=== PATIENT | male | born 1955 | race Caucasian/White ===

== ENCOUNTER 2018-11-08 09:17 | Observation (INO) | payer OTHER ==
[~2018-11-08 09:17] MED LIST: Buffered Lidocaine 1% SYRIN* 1 ML/SYRINGE INTRADERM ONE; Dexamethasone IV* 4 MG/ML 1 ML (4 MG) IV SLOW PU ONE; Famotidine IV* 10 MG/ML 2 ML (20 mg) IV ONE; Lactated Ringers 1000 ML Bag* 1,000 ML IV SCH
[2018-11-08] MEDS ORDERED: ceFAZolin 2 GM in NS PREMIX(*) 2 GM/100 ML BAG IVPB ONE ×2 (09:53→16:01)
[2018-11-08] MEDS ORDERED: Dexamethasone IV* 4 MG/ML 1 ML (4 MG) ONE (09:53)
[2018-11-08] MEDS ORDERED: Famotidine IV* 10 MG/ML 2 ML (20 mg) ONE (09:53)
[2018-11-08] MEDS ORDERED: Buffered Lidocaine 1% SYRIN* 1 ML/SYRINGE INTRADERM ONE (09:53)
[2018-11-08] MEDS ORDERED: Lidocaine 1% w EPI 1:200,000* 30 ML VIAL ONE (10:57)
[2018-11-08] MEDS ORDERED: Thrombin 5,000 UNITS* 1 APPLIC KIT - topical use - TOPICAL ONE (10:57)
[2018-11-08] MEDS ORDERED: Bacitracin INJECTION* 50,000 UNITS ONE (10:58)
[2018-11-08] MEDS ORDERED: Propofol* 10 MG/ML 20 ML BTL ONE (11:23)
[2018-11-08] MEDS ORDERED: Midazolam* 1 MG/ML 5 ML VIAL (5 MG) ONE (11:23)
[2018-11-08] MEDS ORDERED: Succinylcholine* 20 MG/ML 10 ML VIAL ONE (11:23)
[2018-11-08] MEDS ORDERED: fentaNYL* 50 MCG/ML 5 ML VIAL (250 MCG VIAL) ONE (11:23)
[2018-11-08] MEDS ORDERED: EPHEDrine (Pressors)* 50 MG/ML VIAL ONE ×2 (12:02→13:26)
[2018-11-08] MEDS ORDERED: Remifentanil* 2 MG VIAL ONE ×2 (12:04→15:18)
[2018-11-08] MEDS ORDERED: Phenylephrine 40 MCG/ML SYRINGE ONE (12:06)
[2018-11-08] MEDS ORDERED: Phenylephrine 10 MG/ML VIAL* 1 ML VIAL ONE (12:14)
[2018-11-08] MEDS ORDERED: Glycopyrrolate IV* 0.2 MG/ML 1 ML VIAL ONE ×2 (12:33→16:06)
[2018-11-08] MEDS ORDERED: DiMENhydriNATE IV* 50 MG/ML VIAL IV PUSH PRN (13:42)
[2018-11-08] MEDS ORDERED: Naloxone* 0.4 MG/ML 1 ML VIAL IV PRN (13:42)
[2018-11-08] MEDS ORDERED: oxyCODONE/Acetamin 5/325 MG* TAB PO PRN (13:42)
[2018-11-08] MEDS ORDERED: fentaNYL* 50 MCG/ML 2 ML VIAL (100 MCG VIAL) IV PRN (13:42)
[2018-11-08] MEDS ORDERED: HYDROcodone/ACETAMIN 5-325 MG* 1 TAB PO PRN (13:42)
[2018-11-08] MEDS ORDERED: Rocuronium* 10 MG/ML VIAL ONE (13:49)
[2018-11-08] MEDS ORDERED: Neostigmine Methylsulfate* 1 MG/ML 10 ML VIAL (1 mg/ml) ONE (16:06)
[2018-11-08] MEDS ORDERED: Ondansetron INJ* 2 MG/ML VIAL ONE (16:08)
[2018-11-08] MEDS ORDERED: Acetaminophen IV 1GM/100ML * 100 ML ONE (17:17)
[2018-11-08] MEDS ORDERED: Acetaminophen IV 1GM/100ML * 1,000 MG/100 ML VIAL IVPB ONE (17:23)
[2018-11-08] MEDS ORDERED: Ondansetron INJ* 2 MG/ML VIAL IV PRN (17:34)
[2018-11-08] MEDS ORDERED: Magnesium Hydroxide LIQ* 30 ML UDC PO PRN (17:34)
[2018-11-08] MEDS ORDERED: Lactated Ringers 1000 ML Bag* 1,000 ML IV SCH (18:00)
[2018-11-08] MEDS: HYDROcodone/ACETAMIN 5-325 MG* 1 TAB PO PRN ×2 (18:45→22:49)
--- NOTE | 2018-11-08 18:48 | OP ---
DATE OF OPERATION: 11/08/18 - ROOM #353 DATE OF : 59 SURGEON: Ron Stephenson MD INTERN: GRISELDA Lau. The case was done with the assistance of surgical PA because of the complexity of the case. ANESTHESIA: General. PRE-OP DIAGNOSIS: C5-6, C6-7 degenerative disk disease. POST-OP DIAGNOSIS: C5-6, C6-7 degenerative disk disease. OPERATIVE PROCEDURE: The patient underwent anterior cervical diskectomy and fusion at C5-6, C6-7 with PEEK interbody cages, DBX, autologous bone graft, plate and screws with intraoperative microscope and intraoperative monitoring. ESTIMATED BLOOD LOSS: 10 cc. COMPLICATIONS: None. SUMMARY: The patient is a very pleasant 62-year-old gentleman with complaints of neck pain radiating to both upper extremities with weakness and numbness of both upper extremities with MRI findings consistent with degenerative disk disease at C5- 6 and C6-7. After failing all conservative treatment modalities , the patient was offered the option of surgical intervention in the form of anterior cervical diskectomy and fusion at C5-6 and C6-7. After discussing the expectations, limitations, and possible complications of the procedure with the patient and his friend, his landlord, with complications including, but not limited to bleeding, infection, risk of injury to adjacent structures, coma, paralysis, , need for additional procedures, anesthesia risks, stroke, blindness, cancer, instability, hardware failure, adjacent level disease, pseudoarthrosis, spinal fluid leak, recurrent laryngeal nerve injury, Mark syndrome, injury to thoracic duct, need for tracheostomy or gastrostomy; the patient was agreeable to proceed with surgery and informed consent was obtained. The patient understood that his condition may not improve and in fact may get worse after surgery and that he may need to have additional procedures in the future. He also understood that operative plan may be modified according to intraoperative findings and conditions and that the procedure may be abandoned or done in more than 1 stages. The patient has history of previous CA of larynx with radiation several years ago, followed by Dr. Leung and had significant scar formation even on the skin. The patient understood that it may be difficult to perform the dissection and he has increased risk of recurrent laryngeal nerve injury and that the procedure may be abandoned. He also understood that he may need prolonged ICU stay, prolonged hospitalization, prolonged rehabilitation, need for tracheostomy or gastrostomy. DESCRIPTION OF PROCEDURE: The patient was brought to the operating room and was placed under general anesthesia by anesthesia team. He was carefully positioned supine on the flat top Aleksey table and all bony prominences were meticulously padded. His skin was prepped and draped in the standard fashion. After appropriate surgical pause and patient identification, a small transverse incision on the right anterior cervical area over the C6 vertebral body was made with assistance of intraoperative fluoroscopic imaging. Prior to incision , the skin was infiltrated with local anesthetic. The incision was carried down to the platysma with Bovie cautery. The platysma was gently elevated and dissected free with tenotomy scissors. The platysma was undermined and self- retaining retractors were introduced into the field. The plane between the medial border of the sternocleidomastoid and the medial structures was then gently developed with sharp and dull dissection. Of note, significant amount of scar tissue was encountered as expected from the patient's history of previous radiation. The prevertebral fascia was identified and and was gently divided and the anterior portion of the vertebral column was identified. Intraoperative fluoroscopic imaging confirmed appropriate surgical level and a [place] pin at C5, C6 and C7 vertebral body was placed after dissecting free the prevertebral fascia and elevating slightly the longus colli muscles. The self- retaining retractors were introduced into the field and the microscope was brought into the field. A diskectomy was performed at C6-7 level first after incising the annulus fibrosus with #15 surgical blade. The diskectomy and preparation of the endplates were carried out with the use of pituitary rongeurs , Kerrison punches, curettes, and high-speed drill. Under microscopic magnification, the posterior longitudinal ligament was divided and extensive foraminotomies were performed bilaterally. After copious irrigation, confirmation of meticulous hemostasis and after sizing of the intervertebral space, a 9-mm height PEEK interbody cage from [employer] was inserted after being filled with locally harvested bone graft that was saved during the disk preparation, mixed with DBX was inserted. Then, the [place] pin from the C7 vertebral body was removed and meticulous hemostasis was obtained with Surgiflo and bone wax. Then, the self- retaining retractors were repositioned at the C5- 6 level. Every time that the self-retaining retractors were introduced into the field and secured in place, the Apfelbaum maneuver was performed. Diskectomy, foraminotomies and endplate preparation was performed at the C5-6 level. A 9-mm height interbody cage was also inserted after being filled with locally harvested bone graft and DBX. The [place] pins were then removed and a [employer] Zevo plate was placed and secured with titanium screws. Intraoperative fluoroscopic imaging confirmed excellent placement of all hardware. The self-retaining retractors were removed from the field and after confirmation of meticulous hemostasis, copious irrigation and after meticulous inspection, the wound was closed by layers over a Terry drain which was tunneled through a separate stab wound incision. The platysma was approximated with interrupted 2-0 Vicryl suture while the subcutaneous tissue was approximated with inverted interrupted 2-0 Vicryl sutures. The skin was then covered with Dermabond. At the end of the procedure, all counts were reported to be correct. The patient remained hemodynamically stable throughout the case. He was then extubated and was transferred to Recovery in excellent condition. The case was done with the assistance of surgical PA because of the complexity of the case. [id number]/[facility] #: [id number] YULIANA
[2018-11-08] MEDS ORDERED: Cyclobenzaprine TAB* 10 MG ONE (22:20)
[2018-11-08] MEDS ORDERED: Cyclobenzaprine TAB* 10 MG PO PRN (22:45)
[2018-11-08] MEDS: Pregabalin CAP(*) 25 MG PO SCH (22:48)
[2018-11-08] MEDS: Pregabalin CAP(*) 100 MG PO SCH (22:50)
[2018-11-08] MEDS ORDERED: Atorvastatin* 80 MG TAB PO SCH (23:00)
[2018-11-08] MEDS ORDERED: Levothyroxine TAB* 75 MCG TAB PO SCH (23:00)
[2018-11-08] MEDS: Amitriptyline TAB* 25 MG PO SCH (23:13)
[2018-11-08] MEDS: Pantoprazole TAB * 40 MG TAB PO SCH (23:13)
[2018-11-09] MEDS: HYDROcodone/ACETAMIN 5-325 MG* 1 TAB PO PRN ×2 (05:19→12:59)
[2018-11-09] MEDS: Pantoprazole TAB * 40 MG TAB PO SCH (08:11)
[2018-11-09] MEDS: Pregabalin CAP(*) 25 MG PO SCH (08:12)
[2018-11-09] MEDS: Pregabalin CAP(*) 100 MG PO SCH (08:12)
[2018-11-09] MEDS: Amitriptyline TAB* 25 MG PO SCH (08:13)
[2018-11-09] MEDS ORDERED: Lisinopril TAB* 10 MG PO SCH (09:00)
[2018-11-09] MEDS ORDERED: Magnesium Oxide TAB* 400 MG PO SCH (09:00)
--- NOTE | 2018-11-09 11:06 | PN ---
Progress Note - Progress Note Date of Service: 11/09/18 SOAP: Subjective: 69 y/o male s/p ACDF at C5/C6,C6/C7 POD #1, no new acute issues overnight. Patient is doing well, he has been able to drink and eat with difficulty. Has post op imaging this morning. RUPINDER drain put out 57 over night. He feels is radicular symptoms have improved, patient has no new complaints at this time. Objective: Vital Signs - 12 hr Temp Pulse Resp BP Pulse Ox 11/09/18 08:12 20 11/09/18 07:22 97.5 F 72 18 127/73 93 11/09/18 07:15 20 11/09/18 05:19 16 11/09/18 04:23 97.7 F 76 16 138/86 94 11/09/18 01:19 18 11/09/18 00:00 93 PE: Patient sitting up at the edge of bed, NAD Nuero: GCS 15, A&O x3. CN II - XII grossly intact, UPE motor strength 5/5 bilat , LE motor strength 5/5 bilat sensation intact Wound C/D/I Assessment: 69 y/o male post ACDF of C5/C6, C6/C7 patient doing well, no acute issues overnight doing well ready for discharge. Plan: D/C drain Pain management as as needed Follow up post op imaging D/C planning
[2018-11-09 12:13] VITALS: BP 123/79
--- NOTE | 2018-11-09 14:40 | CONS ---
[facility] MEDICINE CONSULTATION REPORT: DATE OF CONSULT: 11/09/18 ATTENDING SURGEON: Dr. Stephenson. CONSULTING PHYSICIAN: Dr. Melly De Luna (dictated by Kathy Guerrier NP). REASON FOR CONSULT: Co-management of chronic medical conditions. HISTORY OF PRESENT ILLNESS: Mr. Stewart is a 62-year-old male with a past medical history significant for hypertension, hyperlipidemia, malignant neoplasm of epiglottis, history of sleep apnea, chronic pain, hypothyroid, and spinal stenosis, who presented to [facility] [place] for an elective anterior cervical fusion with Dr. Stephenson. Please see dictated H and P from Dr. Stephenson for complete details. In brief, the patient had ongoing pain with radiation of pain to bilateral upper extremities and failed conservative measures, so therefore elected for an elective anterior cervical diskectomy and spinal fusion. In the immediate postoperative period, the patient is doing well. He has no complaints. He is sitting on the edge of the bed in his hospital room. He denies any chest pain or shortness breath. Denies any nausea, vomiting, diarrhea, abdominal pain. Denies any fever or chills. Denies any upper extremity weakness. Due to his chronic medical conditions, we were asked to see and evaluate the patient to help co-manage his chronic medical conditions. PAST MEDICAL HISTORY: Significant for: 1. Hypertension. 2. Hyperlipidemia. 3. History of malignant neoplasm of epiglottis, status post radiation. 4. Sleep apnea. 5. Aortic abdominal aneurysm. 6. Chronic pain. 7. Morbid obesity. 8. Spinal stenosis. 9. Hypothyroid. 10. Hernia. PAST SURGICAL HISTORY: 1. Right hip fracture repair. 2. Bilateral knee surgery. 3. Carpal tunnel bilaterally. 4. Appendectomy. 5. Splenectomy in 1996. 6. Right hip replacement in 2007. 7. ORIF of right tib-fib fracture. 8. Right wrist repair. HOME MEDICATIONS: Include: 1. Aspirin 325 mg p.o. daily, stopped 7 days ago. 2. Atorvastatin 80 mg p.o. daily. 3. Lisinopril 40 mg half a tab p.o. daily. 4. Lyrica 225 mg p.o. b.i.d. 5. Cyclobenzaprine 10 mg p.o. t.i.d. p.r.n. 6. Prilosec 20 mg p.o. b.i.d. 7. Amitriptyline 25 mg p.o. b.i.d. 8. Synthroid 75 mcg p.o. daily. 9. Vitamin B2 100 mg p.o. daily. 10. Magnesium oxide 100 mg p.o. daily. 11. Qdvovlwgco-xtmtorbxtaxds-udcwdqrv 50/325/40 one tablet as needed for headache. 12. Ventolin HFA inhaler 2 puffs q.6 hours as needed for shortness of breath; the patient reports he rarely uses this. ALLERGIES: No known drug allergies. SOCIAL HISTORY: The patient denies any smoking or illicit drug use. He does report rare alcohol use. Surrogate decision-maker in the event he is unable to make his own decisions is his brother. He is a full code. FAMILY HISTORY: Mother with a history of stroke and at the age of 73. Father with an MS and at the age of 33. No reported history of diabetes. The patient does report family history of colon cancer and mother's aunt with breast cancer. REVIEW OF SYSTEMS: An 11-point review of systems was completed; all pertinent positives were mentioned in the HPI, otherwise were negative. PHYSICAL EXAM: General: Mr. Stewart is a 62-year-old. He is alert and oriented, sitting in his hospital bed, but in no acute distress. He does have an M J collar in place. Vital Signs: Blood pressure 123/79, heart rate 85, respirations 18, O2 saturation 94% on room air. Temperature was 97.8. HEENT: Head is atraumatic, normocephalic. Eyes: EOMs are intact. Sclerae is anicteric and not pale. Oral mucosa appeared to be moist. Neck: He has an M J collar intact. Dressing to anterior neck is dry and intact. Lungs are clear to auscultation bilaterally. No wheezes, rales, or rhonchi. Cardiac: S1, S2. Regular rate and rhythm. No murmurs, rubs, or gallops. Abdomen is soft and nontender. Bowel sounds are present x4. Extremities: He is able to move all 4 extremities with 4/5 strength. Radial pulses are +2 bilaterally. Sensation is intact to bilateral upper extremities. Pedal pulses are +2 bilaterally. Skin: He does have a dressing that is dry and intact at his anterior neck. Neurologic: He is awake, alert and oriented x3. Speech is clear. Thought process is intact. There is no gross focal deficit. DIAGNOSTIC STUDIES/LAB DATA: Labs from 10/31/18: WBCs are 9.7, RBCs 4.08, hemoglobin 13.4, hematocrit 40, platelet count was 461. INR was 0.91, APTT was 33.9. Sodium 132, potassium 4.8, chloride 97, carbon dioxide was 19, anion gap of 16, BUN was 127, creatinine 1.36. glucose was 104. Urine was within normal limits with exception of specific gravity that was 1.009. He had a cervical spine x-ray on 11/09/18, anterior fusion of C5 to C7 with anterior plate and screws. IMPRESSION AND PLAN: Mr. Stewart is a 62-year-old male who presented to [facility] for an elective anterior cervical fusion with Dr. Stephenson. We were asked to see the patient in consultation to co-manage his chronic medical conditions. Our recommendations are as follows: 1. Status post anterior cervical fusion C5 to C7. 2. Management per Neurosurgery, PT/OT per Neurosurgery. Pain medications per Neurosurgery. 3. Hypertension. He can continue lisinopril 20 mg p.o. daily as previously prescribed. 4. Hypothyroid. He should continue on Synthroid 75 mcg p.o. daily. 5. Hyperlipidemia. The patient should continue on atorvastatin 80 mg p.o. daily. 6. Gastroesophageal reflux disease. The patient should continue on Prilosec 20 mg p.o. b.i.d. 7. Chronic pain. The patient should continue his Lyrica and cyclobenzaprine as needed for pain. 8. FEN. He can have a regular diet. 9. Code status. He is a full code. 10. DVT prophylaxis as per Neurosurgery. TIME SPENT: Time spent on this consultation was approximately 45 minutes. Greater than half of that time was spent at the bedside reviewing events leading thus far to his hospitalization, performing physical exam and reviewing my plan of care. I have discussed this with my attending, Dr. Melly De Luna; she is in agreement with my plan. KATHY GUERRIER, [employer] [id number]/[facility] #: [id number] [facility]
--- NOTE | 2018-11-10 03:30 | DS ---
DISCHARGE SUMMARY: DATE OF ADMISSION: 11/08/18 DATE OF DISCHARGE: 11/09/18 PROVIDER: Kathy Guerrier NP ATTENDING SURGEON: Dr. Stephenson. CONSULTING PHYSICIAN: Dr. Melly De Luna * (dictated by Kathy Guerrier NP). PRIMARY DIAGNOSIS: Anterior cervical spine diskectomy and fusion. SECONDARY DIAGNOSES: 1. Hypertension. 2. Hyperlipidemia. 3. History of malignant neoplasm of epiglottis, status post radiation. 4. Sleep apnea. 5. Aortic abdominal aneurysm. 6. Chronic pain. 7. Morbid obesity. 8. Spinal stenosis. 9. Hypothyroidism. 10. Hernia. STUDIES COMPLETED WHILE IN THE HOSPITAL: He had a postoperative cervical spine x- ray which showed anterior fusion of C5 to C7 with anterior plate and screws. DISCHARGE MEDICATIONS: New medications: 1. Hydrocodone/acetaminophen 5/325 two tablets every 4 hours as needed for pain. 2. Cyclobenzaprine 10 mg p.o. t.i.d. as needed for spasm. Continued home medications: 1. Vitamin B2 100 mg p.o. daily. 2. Lyrica 225 mg p.o. b.i.d. 3. Omeprazole 20 mg p.o. b.i.d. 4. Magnesium oxide 400 mg p.o. q.a.m. 5. Lisinopril 20 mg p.o. q.a.m. 6. Levothyroxine 75 mcg p.o. at bedtime. 7. Iaerbljgkf-ykpwqplslumiq-bsoyyxjq 1 tab q.4 hours p.r.n. 8. Atorvastatin 80 mg p.o. at bedtime. 9. Aspirin 325 mg p.o. daily. 10. Amitriptyline 25 mg p.o. b.i.d. HISTORY OF PRESENT ILLNESS AND HOSPITAL COURSE: Mr. Stewart is a 62-year-old male who presented to [facility] for an elective anterior cervical fusion with Dr. Stephenson. In brief, the patient had ongoing neck pain radiating to both upper extremities with weakness and numbness to both upper extremities, who had an MRI consistent with degenerative disk disease at C5-6 and C6-7. After failing conservative measures, the patient opted for an elective anterior cervical diskectomy and fusion with Dr. Stephenson. In the immediate postoperative period, the patient is doing well. His pain has been controlled with pain medications. He has no neurological deficits and is stable for discharge home as per Dr. Stephenson' recommendation. At this time, the patient will be discharged home. Vital Signs: Blood pressure 123/79, heart rate 85, respirations 18, O2 saturation 94%, temperature was 97.8. DISCHARGE PLAN: Mr. Stewart will be discharged home. Activity as tolerated with restrictions, no bending, no lifting, no driving. Status post anterior cervical spine fusion. Neurosurgery has instructed the patient that he must leave collar in place at all times. He is not to drive. No lifting. No bending. He can shower, would light rinse over the surgical wound, continue to wear the C-collar at all times. Follow up with Dr. Stephenson in 1 week and follow up with his primary care provider in 1 week. If the patient should notice any drainage, redness, or increased pain to the surgical incision site, he should contact Dr. Stephenson for further recommendations. If the patient develops any chest pain, shortness of breath, bleeding from the incision site, difficulty swallowing or any other concerning symptoms, the patient should return to the emergency room. At this time, Mr. Stewart is stable for discharge home. DISPOSITION: Home. CONDITION ON DISCHARGE: Stable. I have discussed with my attending, Dr. Melly De Luna, who was in agreement with my plan. KATHY GUERRIER NP [id number]/[facility] #: [id number] YULIANA
== END 2018-11-09 16:15 | disposition home or self-care (01) ==
LOC: OR 09:17 → SSU 18:28
PROVIDERS: ADMIT Neurological Surgery; ATTEND Neurological Surgery
DX: M50.323 Other cervical disc degeneration at C6-C7 level (principal); I10 Essential (primary) hypertension; E78.5 Hyperlipidemia, unspecified; Z85.21 Personal history of malignant neoplasm of larynx; Z92.21 Personal history of antineoplastic chemotherapy; G47.30 Sleep apnea, unspecified; I71.4 Abdominal aortic aneurysm, without rupture; G89.29 Other chronic pain; E66.01 Morbid (severe) obesity due to excess calories; M48.00 Spinal stenosis, site unspecified; E03.9 Hypothyroidism, unspecified; K46.9 Unspecified abdominal hernia without obstruction or gangrene; Z79.82 Long term (current) use of aspirin; Z79.899 Other long term (current) drug therapy; K21.9 Gastro-esophageal reflux disease without esophagitis
CPT/HCPCS: 72040; 76000; A9270-GY; G0378; G8987-GO-CI; G8988-GO-CI; G8989-GO-CI; J0330; J0690; J1100; J2001; J2250; J2405; J2704; J2710; J3010

== ENCOUNTER 2019-11-21 07:30 | Inpatient (IN) ==
[2019-11-28] MEDS ORDERED: Lactated Ringers 1000 ml BAG 1,000 ML IV SCH (06:00)
[2019-11-28] MEDS ORDERED: Buffered Lidocaine 1% SYRIN 1 ml INTRADERM ONE (06:00)
[2019-11-28] MEDS ORDERED: ceFAZolin 2 GM PREMIX 2 GM/50 ML BAG ONE (06:55)
[2019-11-28] MEDS ORDERED: Bacitracin OINTMENT TUBE ONE (07:16)
[2019-11-28] MEDS ORDERED: Ketamine HCL 50 mg/ml 10 ml VIAL (500 MG) ONE (07:17)
[2019-11-28] MEDS ORDERED: Midazolam 5 mg/5 ml VIAL 1 mg/ml 5 ml VIAL (5 mg) ONE (07:17)
[2019-11-28] MEDS ORDERED: Bacitracin INJECTION 50,000 UNITS ONE (07:20)
[2019-11-28] MEDS ORDERED: Bupivacaine 0.25% w/EPI 10 ML SDV ONE ×2 (07:20→09:43)
[2019-11-28] MEDS ORDERED: Propofol 10 mg/ml 100 ML BTL 0 ML ONE (07:21)
[2019-11-28] MEDS ORDERED: fentaNYL 250 mcg/5 ml 50 MCG/ML 5 ml VIAL (250 MCG) ONE (07:29)
[2019-11-28] MEDS ORDERED: Artificial Tear OPHTH.OINT 3.5 GM ONE (07:33)
[2019-11-28] MEDS ORDERED: Phenylephrine IV 10 MG/ML 1 ml VIAL ONE (09:15)
[2019-11-28] MEDS ORDERED: Calcium CHLORIDE 10% SYRINGE 1 GM/10 ML ONE ×2 (09:31→09:40)
[2019-11-28] MEDS ORDERED: Naloxone 0.4 mg VIAL 0.4 mg/ml 1 ml VIAL IV PRN (09:40)
[2019-11-28] MEDS ORDERED: fentaNYL 100 mcg/2 ml 50 MCG/ML VIAL IV PRN (09:40)
[2019-11-28] MEDS ORDERED: Ondansetron 4 mg VIAL 2 MG/ML 2 ml VIAL IV PRN ×2 (09:40→12:24)
[2019-11-28] MEDS ORDERED: Remifentanil 2 MG VIAL ONE (10:14)
[2019-11-28] MEDS ORDERED: Phenylephrine 40 mcg/mL 10mL (400mcg) SYRINGE ONE (10:43)
[2019-11-28] MEDS ORDERED: Magnesium Hydroxide LIQ 30 ML UDC PO PRN (12:24)
[2019-11-28] MEDS ORDERED: HYDROcodone/ACETAMIN 5/325 mg TAB ONE (12:32)
[2019-11-28] MEDS ORDERED: HYDROmorphone 1 MG/1 ML SYRINGE ONE (12:32)
[2019-11-28] MEDS: HYDROcodone/ACETAMIN 5/325 mg TAB PO PRN ×2 (12:37→19:01)
[2019-11-28] MEDS: HYDROmorphone 1 MG/1 ML SYRINGE IV PRN ×5 (12:38→13:17)
[2019-11-28] MEDS ORDERED: Albuterol HFA INHALER 8 gm MDI INH PRN (13:49)
[2019-11-28] MEDS ORDERED: Ondansetron 4 mg VIAL 2 MG/ML 2 ml VIAL ONE (13:53)
[2019-11-28] MEDS ORDERED: Sugammadex 500 MG/5 ML 5 ml VIAL IV PUSH ONE (13:56)
[2019-11-29] MEDS: HYDROcodone/ACETAMIN 5/325 mg TAB PO PRN ×3 (00:12→15:04)
[2019-11-29] MEDS: SPIRIVA Respimat (tiotropium) 2.5 mcg/inh Inhaler INH SCH (08:55)
[2019-11-29] MEDS: Riboflavin (B2) 100 mg TAB(NF) PO SCH (09:48)
[2019-11-29] MEDS ORDERED: Iohexol 350 (CONTRAST) 500 ML MDV IV ONE (13:27)
[2019-11-30 00:20] LABS: Urine Appearance Clear; Urine Bilirubin Negative (Negative); Urine Blood Negative (Negative); Urine Color Yellow; Urine Glucose 1+(50 mg/dL) (Negative); Urine Ketones Negative (Negative); Urine Nitrite Negative (Negative); Urine Protein Negative (Negative); Urine Specific Gravity 1.018 (1.010-1.030); Urine Urobilinogen Negative (Negative)
[2019-11-30 02:25] LABS: BUN/Creatinine Ratio 17.2 (8-20); Calcium 8.7 mg/dL (8.6-10.3); EGFR African American 72.8 (>60); EGFR Non-African American 60.2 (>60); Potassium 4.3 mmol/L (3.5-5.0)
[2019-11-30] MEDS: NS 0.9% 1000 ml BAG 1,000 ML IV SCH ×2 (03:32→06:32)
[2019-11-30] MEDS: SPIRIVA Respimat (tiotropium) 2.5 mcg/inh Inhaler INH SCH (08:04)
[2019-11-30] MEDS: HYDROcodone/ACETAMIN 5/325 mg TAB PO PRN ×2 (08:11→21:23)
[2019-11-30] MEDS: Riboflavin (B2) 100 mg TAB(NF) PO SCH (08:15)
[2019-11-30 09:52] LABS: Hematocrit 37 % (42-52); Hemoglobin 12.8 g/dL (14.0-18.0); Mean Corpuscular HGB Conc 35 g/dL (31-36); Mean Corpuscular Hemoglobin 33 pg (27-31); Mean Corpuscular Volume 96 fL (80-94); Mean Platelet Volume 7.5 fL (7.4-10.4); Platelet Count 429 10^3/uL (150-450); Red Blood Count 3.85 10^6 /uL (4.18-5.48); Red Cell Distribution Width 13 % (10-15); White Blood Count 10.8 10^3/uL (3.5-10.8)
[2019-11-30 09:59] LABS: ABS Basophils 0.1 10^3/ul (0-0.2); ABS Eosinophils 0.2 10^3/ul (0-0.6); ABS Lymphocytes 2.9 10^3/ul (1.0-4.8); ABS Monocytes 2.4 10^3/ul (0-0.8); ABS Neutrophils 5.2 10^3/ul (1.5-7.7); Eosinophil % 1.4 %; Lymphocyte % 26.6 %; Nucleated Red Blood Cells % 0.1
[2019-11-30 10:12] LABS: BUN/Creatinine Ratio 14.5 (8-20); Calcium 8.7 mg/dL (8.6-10.3); EGFR African American 82.1 (>60); EGFR Non-African American 67.8 (>60); Magnesium 1.6 mg/dL (1.9-2.7); Potassium 3.7 mmol/L (3.5-5.0)
[2019-11-30] MEDS ORDERED: Magnesium Sulfate IV 3 GM in NS 0.9% 100 ml BAG 100 ML IVPB ONE (12:16)
[2019-11-30 13:10] LABS: BUN/Creatinine Ratio 16.1 (8-20); Calcium 8.9 mg/dL (8.6-10.3); EGFR African American 80.4 (>60); EGFR Non-African American 66.4 (>60); Magnesium 1.6 mg/dL (1.9-2.7); Potassium 4.3 mmol/L (3.5-5.0)
[2019-11-30] MEDS ORDERED: NS 0.9% 250 ml 250 ML IV ONE (15:51)
[2019-11-30] MEDS ORDERED: Senna TAB 8.6 mg TAB PO PRN (15:52)
[2019-11-30 16:59] LABS: BUN/Creatinine Ratio 16.1 (8-20); Calcium 8.5 mg/dL (8.6-10.3); EGFR African American 75.7 (>60); EGFR Non-African American 62.6 (>60); Magnesium 2.3 mg/dL (1.9-2.7); Potassium 4.3 mmol/L (3.5-5.0)
[2019-11-30 20:11] LABS: BUN/Creatinine Ratio 15.9 (8-20); Calcium 8.4 mg/dL (8.6-10.3); EGFR African American 79.6 (>60); EGFR Non-African American 65.8 (>60); Magnesium 2.1 mg/dL (1.9-2.7); Potassium 4.4 mmol/L (3.5-5.0)
[2019-12-01 00:35] LABS: BUN/Creatinine Ratio 16.8 (8-20); Calcium 8.9 mg/dL (8.6-10.3); EGFR African American 84.7 (>60); Magnesium 2.1 mg/dL (1.9-2.7)
[2019-12-01 00:43] LABS: Potassium 5.4 mmol/L (3.5-5.0)
[2019-12-01] MEDS: NS 0.9% 1000 ml BAG 1,000 ML IV SCH ×3 (02:32→20:14)
[2019-12-01 03:55] LABS: Hematocrit 36 % (42-52); Hemoglobin 12.3 g/dL (14.0-18.0); Mean Corpuscular HGB Conc 35 g/dL (31-36); Mean Corpuscular Hemoglobin 33 pg (27-31); Mean Corpuscular Volume 97 fL (80-94); Mean Platelet Volume 7.3 fL (7.4-10.4); Platelet Count 395 10^3/uL (150-450); Red Blood Count 3.68 10^6 /uL (4.18-5.48); Red Cell Distribution Width 14 % (10-15); White Blood Count 11.6 10^3/uL (3.5-10.8)
[2019-12-01 04:09] LABS: BUN/Creatinine Ratio 14.2 (8-20); Calcium 8.5 mg/dL (8.6-10.3); EGFR African American 85.7 (>60); EGFR Non-African American 70.8 (>60); Magnesium 2.1 mg/dL (1.9-2.7); Potassium 4.8 mmol/L (3.5-5.0)
[2019-12-01 04:53] LABS: ABS Basophils 0.2 10^3/ul (0-0.2); ABS Eosinophils 0.3 10^3/ul (0-0.6); ABS Lymphocytes 2.7 10^3/ul (1.0-4.8); ABS Monocytes 2.8 10^3/ul (0-0.8); ABS Neutrophils 5.7 10^3/ul (1.5-7.7); Eosinophil % 2.6 %; Nucleated Red Blood Cells % 0.1
[2019-12-01] MEDS: SPIRIVA Respimat (tiotropium) 2.5 mcg/inh Inhaler INH SCH (09:27)
[2019-12-01] MEDS: Riboflavin (B2) 100 mg TAB(NF) PO SCH (09:28)
[2019-12-01 11:36] LABS: Hematocrit 36 % (42-52); Hemoglobin 12.6 g/dL (14.0-18.0); Mean Corpuscular HGB Conc 35 g/dL (31-36); Mean Corpuscular Hemoglobin 33 pg (27-31); Mean Corpuscular Volume 95 fL (80-94); Mean Platelet Volume 7.4 fL (7.4-10.4); Platelet Count 418 10^3/uL (150-450); Red Cell Distribution Width 13 % (10-15); White Blood Count 13.3 10^3/uL (3.5-10.8)
[2019-12-01 11:37] LABS: ABS Basophils 0.1 10^3/ul (0-0.2); ABS Eosinophils 0.3 10^3/ul (0-0.6); ABS Lymphocytes 1.9 10^3/ul (1.0-4.8); ABS Monocytes 3.1 10^3/ul (0-0.8); ABS Neutrophils 7.9 10^3/ul (1.5-7.7); Eosinophil % 2.4 %
[2019-12-01 11:50] LABS: Calcium 9.3 mg/dL (8.6-10.3); EGFR African American 91.6 (>60); EGFR Non-African American 75.7 (>60); Magnesium 1.8 mg/dL (1.9-2.7)
[2019-12-01 17:20] LABS: C Reactive Protein 65.54 mg/L (<8.01)
[2019-12-01] MEDS: ceFAZolin 1 GM ADVAN 1 GM in NS 0.9% 50 ML 50 ML IVPB SCH (17:29)
[2019-12-01] MEDS ORDERED: Magnesium Sulfate 2 gm BAG 2 GM/50 ML BAG IVPB ONE (17:30)
[2019-12-01 18:14] LABS: Urine Appearance Clear; Urine Bilirubin Negative (Negative); Urine Blood 2+ (Negative); Urine Color Straw; Urine Glucose Negative (Negative); Urine Ketones Negative (Negative); Urine Nitrite Negative (Negative); Urine Protein Negative (Negative); Urine Specific Gravity 1.006 (1.010-1.030); Urine Urobilinogen Negative (Negative)
[2019-12-01 18:16] LABS: Urine Bacteria Absent (Absent); Urine Red Blood Cell 3+(>10/hpf) (Absent); Urine White Blood Cell Trace(0-5/hpf) (Absent)
[2019-12-02] MEDS: ceFAZolin 1 GM ADVAN 1 GM in NS 0.9% 50 ML 50 ML IVPB SCH ×2 (02:31→09:55)
[2019-12-02] MEDS: NS 0.9% 1000 ml BAG 1,000 ML IV SCH (03:46)
[2019-12-02 06:18] LABS: Hematocrit 36 % (42-52); Hemoglobin 12.9 g/dL (14.0-18.0); Mean Corpuscular HGB Conc 35 g/dL (31-36); Mean Corpuscular Hemoglobin 34 pg (27-31); Mean Corpuscular Volume 96 fL (80-94); Mean Platelet Volume 7.7 fL (7.4-10.4); Platelet Count 445 10^3/uL (150-450); Red Blood Count 3.81 10^6 /uL (4.18-5.48); Red Cell Distribution Width 14 % (10-15); White Blood Count 10.5 10^3/uL (3.5-10.8)
[2019-12-02 06:22] LABS: BUN/Creatinine Ratio 12.6 (8-20); Calcium 8.7 mg/dL (8.6-10.3); EGFR African American 97.2 (>60); EGFR Non-African American 80.3 (>60); Magnesium 2.1 mg/dL (1.9-2.7); Potassium 4.4 mmol/L (3.5-5.0)
[2019-12-02 06:23] LABS: ABS Basophils 0.1 10^3/ul (0-0.2); ABS Eosinophils 0.5 10^3/ul (0-0.6); ABS Monocytes 2.2 10^3/ul (0-0.8); ABS Neutrophils 5.7 10^3/ul (1.5-7.7); Eosinophil % 4.5 %; Lymphocyte % 19.3 %; Nucleated Red Blood Cells % 0.1
[2019-12-02] MEDS: Riboflavin (B2) 100 mg TAB(NF) PO SCH (09:43)
[2019-12-02] MEDS: SPIRIVA Respimat (tiotropium) 2.5 mcg/inh Inhaler INH SCH (09:54)
[2019-12-02 10:02] LABS: Folate 7.27 ng/mL (>3.99)
[2019-12-02] MEDS: NS 0.45% KCl 20 Meq 1000 ml 1,000 ML IV SCH (11:57)
[2019-12-02] MEDS: HYDROcodone/ACETAMIN 5/325 mg TAB PO PRN (15:39)
[2019-12-03] MEDS: NS 0.45% KCl 20 Meq 1000 ml 1,000 ML IV SCH (00:03)
[2019-12-03 04:53] LABS: Hematocrit 36 % (42-52); Hemoglobin 12.5 g/dL (14.0-18.0); Mean Corpuscular HGB Conc 35 g/dL (31-36); Mean Corpuscular Hemoglobin 33 pg (27-31); Mean Corpuscular Volume 95 fL (80-94); Mean Platelet Volume 7.4 fL (7.4-10.4); Platelet Count 502 10^3/uL (150-450); Red Blood Count 3.79 10^6 /uL (4.18-5.48); Red Cell Distribution Width 13 % (10-15)
[2019-12-03 05:02] LABS: ABS Basophils 0.1 10^3/ul (0-0.2); ABS Eosinophils 0.7 10^3/ul (0-0.6); ABS Neutrophils 5.2 10^3/ul (1.5-7.7); Eosinophil % 7.1 %; Lymphocyte % 20.1 %; Nucleated Red Blood Cells % 0.1
[2019-12-03 06:05] LABS: Calcium 8.7 mg/dL (8.6-10.3); Magnesium 1.9 mg/dL (1.9-2.7); Potassium 4.2 mmol/L (3.5-5.0)
[2019-12-03 06:10] LABS: BUN/Creatinine Ratio 15.4 (8-20); EGFR African American 102.1 (>60); EGFR Non-African American 84.4 (>60)
[2019-12-03 07:28] VITALS: BP 142/69
[2019-12-03] MEDS: SPIRIVA Respimat (tiotropium) 2.5 mcg/inh Inhaler INH SCH (07:51)
[2019-12-03] MEDS: Riboflavin (B2) 100 mg TAB(NF) PO SCH (08:06)
== END 2019-12-03 11:15 | disposition home or self-care (01) | DRG 304 ==
LOC: AA 11-28 05:46 → SSU 11-28 14:41
PROVIDERS: ADMIT Neurological Surgery; ATTEND Internal Medicine